=== PATIENT | female | born 1975 | race Caucasian/White ===

== ENCOUNTER 2017-05-07 10:33 | Observation (INO) | payer OTHER ==
[2017-05-07] MEDS ORDERED: 0.9 % SODIUM CHLORIDE 1,000 ML IV SCH (11:00)
[2017-05-07] MEDS ORDERED: NALOXONE HCL 0.4 MG/ML AMP IM ONE (11:08)
[2017-05-07] MEDS ORDERED: 0.9 % SODIUM CHLORIDE 1,000 ML IV ONE (11:13)
[2017-05-07] MEDS ORDERED: NALOXONE HCL 0.4 MG/ML AMP ONE (11:55)
[2017-05-07] MEDS ORDERED: SALINE FLUSH 10 ML DISP.SYRIN IVF ONE (12:18)
[2017-05-07 12:47] VITALS: BP 120/85
[2017-05-07 13:21] LABS: BASOPHILS % 0.4 (0.0-1.5); EOSINOPHILS % 3.7 % (0.0-6.8); MEAN CORPUSCULAR HEMOGLOBIN 26.9 pg (28.0-34.0); MEAN CORPUSCULAR VOLUME 87.7 fl (80.0-100.0); MONOCYTES % 3.4 % (0.0-11.0); NEUTROPHILS # 7.5 # k/uL (1.4-7.7)
[2017-05-07 13:38] LABS: eGFR (African) > 60; eGFR (Non-African) > 60
[2017-05-07 14:10] VITALS: BMI 27.7
[2017-05-07] MEDS ORDERED: ACETAMINOPHEN 325 MG TABLET PO PRN (14:38)
[2017-05-07] MEDS ORDERED: ACETAMINOPHEN 325 MG TABLET ONE (14:44)
--- NOTE | 2017-05-07 14:49 | Diagnostic Imaging Report ---
SOUTH WING/MED SURG [facility] [address] [facility] [address] [place], [place]. [address] Report Submission Date: May 07, 2017 12:25:52 PM CDT Patient Study Name: CONI LOPEZ Date: May 07, 2017 11:47:01 AM CDT Modality Type: CT\SR Gender: F Description: CT BRAIN W/O CONTRAST : 79 Institution: [facility] Physician: [facility] WING/MED SURG Examination: CT head without contrast History: Head injury Comparison exam: None available Technique: Noncontrast head CT protocol. Findings: Motion artifact. Ventricles and sulci are appropriate for patient age. Cerebrocerebellar parenchyma demonstrates normal attenuation. No evidence for parenchymal hemorrhage. No evidence for mass or mass effect. No midline shift. No extra axial fluid collections. Partial visualization of the paranasal sinuses, mastoid air cells, orbits, skull and scalp without gross regularity. Impression: No acute parenchymal process. No hemorrhage. Electronically signed on May 07, 2017 12:25:52 PM CDT by: Yuri FLEMING
--- NOTE | 2017-05-07 14:50 | Diagnostic Imaging Report ---
MEETA ELI [facility] [address] [facility] [address] [address] Report Submission Date: May 07, 2017 12:13:31 PM CDT Patient Study Name: CONI LOPEZ Date: May 07, 2017 11:38:42 AM CDT Modality Type: CR Gender: F Description: CHEST : 79 Institution: [facility] Physician: MEETA ELI Examination: PA and lateral chest. History: Dyspnea Findings: PA lateral chest demonstrate a normal cardiac and mediastinal silhouette. No focal infiltrate. No effusion. No blunting of the costophrenic margins. Osseous structures are appropriate for age. Impression: No acute process. Electronically signed on May 07, 2017 12:13:31 PM CDT by: Yuri FLEMING
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
--- NOTE | 2017-05-08 08:49 | Discharge Summary ---
DATE OF ADMISSION: May 07, 2017 DATE OF DISCHARGE: May 07, 2017 DIAGNOSES ON THIS HOSPITALIZATION: 1. Mental status change. 2. Seizure disorder. 3. Polysubstance abuse. SUMMARIZATION OF ADMISSION HISTORY AND PHYSICAL: This is a 41-year-old female who presented by transfer from [facility] today with a sudden onset of sleepiness. It is not clear whether she had a seizure or not. She is currently being treated for opiate abuse there. She has denied ingestion of any opioids or other medications. Her urine drug screen was positive for Suboxone and benzodiazepines, both of which she is being administered at [facility]. HOSPITAL COURSE: She was admitted. CT of her head was done because of a recent fall and head trauma and it was negative. A Keppra level was ordered and that is still pending at this time. We did have a CBC and a CMP done and both of those essentially were unchanged from her admission to [facility]. After a couple of hours of being in the hospital, she awakened and was back to her normal baseline. She had no slurring of speech. Good cognitive resources and thought patterns. She was then transferred back to [facility] in improved condition with continuation of her medications there as prior to admission. She was administered Narcan once here in the hospital without significant improvement. I will see her back at [facility] in the morning for follow up. LONNIE
== END 2017-05-07 17:40 | disposition home or self-care (01) ==
LOC: SOUTH 10:33
PROVIDERS: ADMIT Family Medicine; ATTEND Family Medicine
DX: R41.82 Altered mental status, unspecified (principal); R56.9 Unspecified convulsions; F19.10 Other psychoactive substance abuse, uncomplicated
CPT/HCPCS: 36415; 70450; 71020; 80053; 80177; 85025; G0378; G0379; J2310; J7030; 96361; 96374; 96376; 99283; 99284; S1016

== ENCOUNTER 2017-05-14 04:04 | Emergency (ER) | payer OTHER ==
[2017-05-14] MEDS ORDERED: diphenhydrAMINE HCL 50 MG/ML VIAL IVP ONE ×2 (04:29→06:53)
[2017-05-14] MEDS ORDERED: PROMETHAZINE HCL 25 MG in 0.9 % SODIUM CHLORIDE 50 ML IV ONE ×2 (04:29→07:25)
[2017-05-14] MEDS ORDERED: 0.9 % SODIUM CHLORIDE 1,000 ML IV SCH (04:30)
[2017-05-14] MEDS ORDERED: 0.9 % SODIUM CHLORIDE 1,000 ML IV ONE (04:32)
[2017-05-14 05:03] LABS: BASOPHILS % 0.7 (0.0-1.5); EOSINOPHILS % 4.9 % (0.0-6.8); MEAN CORPUSCULAR HEMOGLOBIN 26.8 pg (28.0-34.0); MEAN CORPUSCULAR VOLUME 84.3 fl (80.0-100.0); MONOCYTES % 8.1 % (0.0-11.0)
[2017-05-14 05:13] LABS: eGFR (African) > 60; eGFR (Non-African) > 60
[2017-05-14] MEDS ORDERED: MAGNESIUM SULFATE/D5W 1 GM in PREMIX BAG 1 BAG IV ONE ×2 (05:41→05:46)
[2017-05-14] MEDS ORDERED: MAGNESIUM SULFATE/D5W 200 ML IV ONE (05:44)
[2017-05-14 08:35] LABS: APPEARANCE,URINE Clear (CLEAR); COLOR,URINE Yellow (YELLOW); OCCULT BLOOD,URINE Negative (NEGATIVE); UROBILINOGEN URINE 0.2 Eu (0.2-1.0)
[2017-05-14] MEDS ORDERED: CEPHALEXIN 250 MG CAPSULE PO ONE (08:41)
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
[2017-05-14 10:53] VITALS: BP 132/79
== END 2017-05-14 10:40 | disposition home or self-care (01) ==
LOC: ED 04:04
DX: G43.909 Migraine, unspecified, not intractable, without status migrainosus (principal); L03.116 Cellulitis of left lower limb; L03.115 Cellulitis of right lower limb; Z87.898 Personal history of other specified conditions
CPT/HCPCS: 80053; 81002; 85025; J1200; J2550; J3475; J7030; 96365; 96375; 99283; 99284; S1016

== ENCOUNTER 2017-05-27 09:08 | Emergency (ER) | payer OTHER ==
--- NOTE | 2017-05-27 09:37 | ED Physician Documentation ---
General Adult - HISTORIAN Historian: patient - HPI Chief Complaint: Nausea,Vomiting,Diarrhea Timing: still present Severity: mild Further Comments: yes (Who arroyo been having some nausea and vomiting for 2 days. Not able to keep much down. Has had an increase dose of Keppra for seizure disorder. Has a history of migraine headaches nd has started to get a headache yesterday and continues today. Has been using Zofran without much help. ) - ROS CONST: no problems. denies: fever, chills CVS/RESP: none GI/: abdominal pain, vomiting, nausea. denies: diarrhea, black stools MS/SKIN/LYMPH: denies: calf pain NEURO/PSYCH: headache - PAST HX Past History: other (migraine, optic neuritis, seizures disorder, s/p ablation for cardiac arrythmia. Chronic anemia) Surgeries/Procedures: BTL, cholecystectomy, other (uterine ablation, gastric bypass, appendectomy) Allergies/Adverse Reactions: Allergies Allergy/AdvReac Type Severity Reaction Status Date / Time codeine Allergy Verified 05/14/17 04:16 Fish Containing Products Allergy Verified 05/14/17 04:16 NSAIDS (Non-Steroidal Allergy Verified 05/14/17 04:16 Anti-Inflamma sumatriptan [From Imitrex] Allergy Verified 05/14/17 04:16 sumatriptan succinate Allergy Verified 05/14/17 04:16 [From Imitrex] Home Medications: Ambulatory Orders Medication Instructions Recorded Escitalopram Oxalate [Lexapro] 20 mg PO DAILY 05/14/17 Folic Acid [Folic Acid] 1 mg PO DAILY 05/14/17 Hematinic-Folic 1 tab PO DAILY 05/14/17 Hydroxyzine HCl [Hydroxyzine HCl] 25 mg PO TID 05/14/17 Levetiracetam [Levetiracetam] 500 mg PO TID 05/14/17 Mecobalamin [B-12] 1,000 mcg SL DAILY 05/14/17 Multivit-Min/Folic Acid/Biotin 2 each PO DAILY 05/14/17 [Hair, Skin & Nails Caplet] Ondansetron HCl Rapdis [Zofran Odt] 4 mg PO TID PRN 05/14/17 Pantoprazole Sodium [Protonix] 40 mg PO 0700 05/14/17 Prazosin HCl [Minipress] 1 mg PO HS 05/14/17 Zolpidem Tartrate [Zolpidem 10 mg PO HS 05/14/17 Tartrate] - SOCIAL HX Smoking History: non-smoker Alcohol Use: heavy (last drink of wine was about one month ago) Drug Use: none - FAMILY HX Family History: No - VITAL SIGNS Vital Signs: Vital Signs Temp Pulse Resp BP Pulse Ox 132/79 05/14/17 10:50 - REVIEWED ASSESSMENTS Nursing Assessment Reviewed: Yes Vitals Reviewed: Yes Progress - Progress Progress: 10:45 Still compalins of headache, IV fluids did not seem to help much. Is still having some abd pain. 11:20 Still complaining of headache, Bendryl and phenergan did not help much. 12:10 Headache seems to be some better but abd pain is about the same. 13:26 Patient states that her headache was helped some with Fentanyl but seems to be coming back again. ED Results Lab/Radiology - Radiology Radiology Impressions: Patient Study Name: CONI LOPEZ Date: May 27, 2017 12:51:29 PM CDT Modality Type: CT\SR Gender: F Description: CT ABD & PELVIS W/ CON : 79 Institution: [facility] Physician: PAYTON PAGE - ER Examination: CT Abdomen/pelvis History: Abdominal discomfort Comparison exams: None available Technique: CT Abdomen/pelvis with IV protocol. Findings: Liver, spleen, adrenals, pancreas, and kidneys are without gross irregularity. Surgical clips gallbladder fossa. No abnormal enhancement. Bowel without abnormal dilation. Gastric region surgical changes. Stool within the large bowel limiting sensitivity. No mesenteric inflammatory changes or free fluid. 2.6 cm right adnexal/ovarian. Pelvic phleboliths. Osseous structures within normal limits. Lung bases with mild dependent atelectasis. No infiltrate. Impression: No abdominal mass or inflammatory process. No bowel obstruction. Electronically signed on May 27, 2017 1:23:48 PM CDT by: Yuri Chavez General Adult Physical Exam - PHYSICAL EXAM GENERAL APPEARANCE: mild distress NECK: normal inspection, thyroid normal, supple RESPIRATORY: no resp distress, chest non-tender, breath sounds normal. No: wheezes, rales, rhonchi CVS: reg rate & rhythm, heart sounds normal, equal pulses, no murmur, no gallop ABDOMEN: soft, normal bowel sounds, no distension, tenderness (to the left upper quadrant area) BACK: normal inspection, no CVA tenderness SKIN: warm/dry, normal color NEURO: mood/affect nml, cognition normal Discharge Clincal Impression: Abdominal pain Migraine headache Qualifiers: Migraine type: without aura Status migrainosus presence: without status migrainosus Intractability: not intractable Qualified Code(s): G43.009 - Migraine without aura, not intractable, without status migrainosus Referrals: Paco Wiseman MD [Primary Care Provider] - 2 Days Additional Instructions: Increase protonix to 40mg twice a day for 5 days then go back to once a day. Continue with your other medications. Home and rest in a quiet room. Continue with your other medications. Avoid caffeine, spicy foods, and chocolates. Home Medications: Ambulatory Orders Escitalopram Oxalate [Lexapro] 20 mg PO DAILY 05/14/17 Folic Acid [Folic Acid] 1 mg PO DAILY 05/14/17 Hematinic-Folic 1 tab PO DAILY 05/14/17 Hydroxyzine HCl [Hydroxyzine HCl] 25 mg PO TID 05/14/17 Levetiracetam [Levetiracetam] 500 mg PO TID 05/14/17 Mecobalamin [B-12] 1,000 mcg SL DAILY 05/14/17 Multivit-Min/Folic Acid/Biotin [Hair, Skin & Nails Caplet] 2 each PO DAILY 05/14 Ondansetron HCl Rapdis [Zofran Odt] 4 mg PO TID PRN 05/14/17 Pantoprazole Sodium [Protonix] 40 mg PO 0700 05/14/17 Prazosin HCl [Minipress] 1 mg PO HS 05/14/17 Zolpidem Tartrate [Zolpidem Tartrate] 10 mg PO HS 05/14/17 Condition: Stable Disposition: 01 HOME, SELF-CARE Decision to Admit: NO Date of Decison to Admit: 05/27/17 Decision Time: 13:58
[2017-05-27] MEDS ORDERED: 0.9 % SODIUM CHLORIDE 1,000 ML IV ONE (09:39)
[2017-05-27] MEDS: 0.9 % SODIUM CHLORIDE 1,000 ML IV SCH (09:40)
[2017-05-27 09:46] LABS: BASOPHILS % 0.9 (0.0-1.5); EOSINOPHILS % 5.5 % (0.0-6.8); MEAN CORPUSCULAR HEMOGLOBIN 26.3 pg (28.0-34.0); MEAN CORPUSCULAR VOLUME 85.8 fl (80.0-100.0); MONOCYTES % 7.4 % (0.0-11.0)
[2017-05-27 10:01] LABS: eGFR (African) > 60; eGFR (Non-African) > 60
[2017-05-27] MEDS ORDERED: diphenhydrAMINE HCL 50 MG/ML VIAL ONE (10:52)
[2017-05-27] MEDS ORDERED: PROMETHAZINE HCL 25 MG/ML VIAL ONE (10:52)
[2017-05-27] MEDS ORDERED: 0.9 % SODIUM CHLORIDE 50 ML IV ONE (10:52)
[2017-05-27] MEDS: diphenhydrAMINE HCL 50 MG/ML VIAL IVP ONE (10:55)
[2017-05-27] MEDS: PROMETHAZINE HCL 25 MG in 0.9 % SODIUM CHLORIDE 50 ML IV ONE (10:58)
[2017-05-27] MEDS: fentaNYL CITRATE/PF 100 MCG/ 2ML AMP IVP ONE ×2 (11:25→13:25)
--- NOTE | 2017-05-27 13:54 | Diagnostic Imaging Report ---
PAYTON PAGE [facility] [address] [facility] [address] [place] [address]. [id number] Report Submission Date: May 27, 2017 1:23:48 PM CDT Patient Study Name: CONI LOPEZ Date: May 27, 2017 12:51:29 PM CDT Modality Type: CT\SR Gender: F Description: CT ABD & PELVIS W/ CON : 79 Institution: [facility] Physician: PAYTON PAGE Examination: CT Abdomen/pelvis History: Abdominal discomfort Comparison exams: None available Technique: CT Abdomen/pelvis with IV protocol. Findings: Liver, spleen, adrenals, pancreas, and kidneys are without gross irregularity. Surgical clips gallbladder fossa. No abnormal enhancement. Bowel without abnormal dilation. Gastric region surgical changes. Stool within the large bowel limiting sensitivity. No mesenteric inflammatory changes or free fluid. 2.6 cm right adnexal/ovarian. Pelvic phleboliths. Osseous structures within normal limits. Lung bases with mild dependent atelectasis. No infiltrate. Impression: No abdominal mass or inflammatory process. No bowel obstruction. Electronically signed on May 27, 2017 1:23:48 PM CDT by: Yuri FLEMING
[2017-05-27 14:19] VITALS: BP 118/68
== END 2017-05-27 14:16 | disposition home or self-care (01) ==
LOC: ED 09:08
DX: R10.9 Unspecified abdominal pain (principal); G43.009 Migraine without aura, not intractable, without status migrainosus
CPT/HCPCS: 74177; 80053; 80177; 82150; 85025; 96361; 96374; 96375; 99283; A9698; J1200; J2550; J3010; J7030; Q9966; S1016